=== PATIENT | female | born 1970 | race Caucasian/White ===

== ENCOUNTER 2018-02-11 17:14 | Emergency (ER) | payer SELFPAY ==
[~2018-02-11] VITALS: Ht 167.6 cm; Wt 68.2 kg
[2018-02-11 17:33] VITALS: BP 130/62; Ht 167.6 cm; Wt 68.2 kg
[2018-02-11] MEDS ORDERED: TIROSINT125 MCG PO (17:33)
[2018-02-12] MEDS ORDERED: ZANTAC150 MG PO (12:44)
== END 2018-02-11 19:43 | disposition left against medical advice (07) ==
LOC: D.ER 17:14
DX: R07.9 Chest pain, unspecified (principal); R06.00 Dyspnea, unspecified; E07.9 Disorder of thyroid, unspecified; I44.5 Left posterior fascicular block

== ENCOUNTER 2018-02-12 12:25 | Emergency (ER) | payer OTHER ==
[~2018-02-12] VITALS: Ht 167.6 cm; Wt 75.0 kg
[~2018-02-12 12:25] MED LIST: TIROSINT125 MCG PO
[2018-02-12 12:42] VITALS: Ht 167.6 cm; Wt 75.0 kg
[2018-02-12] MEDS ORDERED: ZANTAC150 MG PO (12:44)
[2018-02-12 13:17] LABS: BASOPHILS 0.5 % (0-2); EOSINOPHILS 2.5 % (0-7); HEMATOCRIT 42.7 % (36.0-48.0); HEMOGLOBIN 14.9 g/dL (12-16); IMMATURE GRANULOCYTES 0.2 % (0-5); LYMPHOCYTES 30.1 % (15-50); MCH 30.2 pg (26.0-34.0); MCHC 34.9 g/dL (31.0-37.0); MCV 86.4 fL (80.0-100.0); MEAN PLATELET VOLUME 10.9 fL (7.4-10.4); MONOCYTES 6.3 % (2-11); NEUTROPHILS 60.4 % (40-80); PLATELET COUNT 170 10x3/uL (130-400); RBC 4.94 10x6/uL (4.00-5.40); RDW 12.3 % (11.5-14.5); WBC 6.4 10x3/uL (4.8-10.8)
[2018-02-12 14:09] LABS: ALKALINE PHOSPHATASE 65 U/L (46-116); ALT (SGPT) 19 U/L (10-68); BILIRUBIN - TOTAL 0.61 mg/dL (0.2-1.3); CALC OSMOLALITY 281 mosm/kg (275-300); CALCIUM 9.2 mg/dL (8.5-10.1); CARBON DIOXIDE 25.1 mmol/L (21.0-32.0); CHLORIDE - SERUM 105 mmol/L (98-107); GLUCOSE 97 mg/dL (74-106); POTASSIUM - SERUM 3.6 mmol/L (3.5-5.1); PROTEIN - SERUM 7.9 g/dL (6.4-8.2); SODIUM 141 mmol/L (136-145); UREA NITROGEN 15 mg/dL (7-18); eGFR NON AFRICAN AMERICAN 63 mL/min (90-120)
[2018-02-12 14:22] LABS: CKMB 0.6 U/L (0.0-3.6); CREATINE KINASE 65 UL (21-215); D-DIMER-QUANTITATIVE < 0.27 ug/mLFEU (0.20-0.54)
[2018-02-12 14:23] LABS: TROPONIN-I < 0.017 ng/mL (0.000-0.060)
[2018-02-12 14:24] LABS: APTT 24.6 SECONDS (22.8-39.4); INR 0.96 (0.85-1.17); PROTIME 12.4 SECONDS (11.6-15.0)
[2018-02-12 18:29] VITALS: BP 128/64
== END 2018-02-12 18:29 | disposition home or self-care (01) ==
LOC: D.ER 12:25
PROVIDERS: Family Medicine
DX: R07.9 Chest pain, unspecified (principal); R06.00 Dyspnea, unspecified; E07.9 Disorder of thyroid, unspecified; K21.9 Gastro-esophageal reflux disease without esophagitis; I44.5 Left posterior fascicular block